=== PATIENT | female | born 1960 | race Caucasian/White ===

== ENCOUNTER 2024-06-26 21:36 | Inpatient (IN) | payer MEDICAID ==
[~2024-06-26] VITALS: Ht 157.5 cm; Wt 54.0 kg
[2024-06-26 21:42] VITALS: O2SAT 99
[2024-06-26] MEDS: SODIUM CHLORIDE 0.9% (SEPSIS BOLUS) IV ONE (23:06)
[2024-06-26] MEDS: PIPERACILLIN/TAZO 3.375G/50ML 50 ML IV ONE (23:19)
[2024-06-26 23:23] LABS: BG CARBOXYHEMOGLOBIN 2.2 % (0.5-1.5); BG DEOXYHEMOGLOBIN 10.1 % (0.0-5.0); BG HCO3 ACT 28.2 mmol/L (21.0-28.0); BG METHEMOGLOBIN 0.3 % (0.5-1.5); BG OXYGEN SATURATION 89.6 % (94.0-98.0); BG OXYHEMOGLOBIN 87.4 % (94.0-98.0); BG PCO2 45.9 mmHg (32.0-45.0); BG PH 7.406 (7.350-7.450); BG PO2 58.9 mmHg (83.0-108.0); BG SAMPLE SITE RIGHT RADIAL; BG TOTAL HEMOGLOBIN 10.7 g/dL (12.0-16.0); BG VENT MODE ROOM AIR
[2024-06-26 23:25] LABS: HEMATOCRIT. 35.3 % (36.0-48.0); MEAN CORPUSCULAR HEMOGLOBIN 26.1 pg (28.0-32.0); MEAN CORPUSCULAR HGB CONC 31.2 g/dL (31.0-37.0); MEAN CORPUSCULAR VOLUME 83.7 fL (81.0-99.0); MEAN PLATELET VOLUME 11.3 fl (7.4-10.4); RED BLOOD CELL COUNT 4.22 mill/uL (4.2-5.4); WHITE BLOOD COUNT 12.4 x1000/uL (4.5-11.0)
[2024-06-26 23:30] LABS: CARBON DIOXIDE 31 mEq/L (21-32); CHLORIDE 105 mEq/L (98-107); POTASSIUM 3.8 mEq/L (3.5-5.1); SODIUM 150 mEq/L (136-145)
[2024-06-26 23:31] LABS: CALCIUM 9.7 mg/dL (8.7-10.4)
[2024-06-26 23:33] LABS: INR 1.2; PROTHROMBIN TIME 12.7 sec (9.6-11.0)
[2024-06-26 23:35] LABS: CREATININE 1.3 mg/dL (0.6-1.0)
[2024-06-26 23:36] LABS: TROPONIN I HIGH SENSITIVITY 9 ng/L (3.0-34); UREA NITROGEN BLOOD 66 mg/dL (9-23)
[2024-06-26 23:37] LABS: ALANINE AMINOTRANSFERASE 21 IU/L (10-49); ALBUMIN 2.7 g/dL (3.2-4.8); ASPARTATE AMINOTRANSFERASE 19 IU/L (<34)
[2024-06-26 23:38] LABS: BILIRUBIN DIRECT 0.4 mg/dL (<=3.0); BILIRUBIN TOTAL 0.7 mg/dL (0.1-1.0); CREATINE KINASE 82 IU/L (34-145); PROTEIN TOTAL 6.2 g/dL (6.0-8.3)
[2024-06-26 23:46] LABS: ETHANOL BLOOD < 10 mg/dL (<10); LACTIC ACID 4.8 mmol/L (0.4-2.0)
[2024-06-26 23:47] LABS: GLUCOSE 587 mg/dL (70-105)
[2024-06-26] MEDS: VANCOMYCIN 1G PREMIX 200 ML IV ONE (23:55)
[2024-06-27 00:04] LABS: DIFFERENTIAL COMMENT 1; PLATELET 34 x1000/uL (130-400)
[2024-06-27 01:17] VITALS: TEMP 36.78072
[2024-06-27] MEDS ORDERED: DEXT 5%/0.9% NACL 1,000 ML IV SCH (01:30)
[2024-06-27] MEDS ORDERED: MAGNESIUM 2 G PREMIX 50 ML IV PRN (01:30)
[2024-06-27] MEDS ORDERED: DEXTROSE 50% WATER 50ML SYRINGE IV PRN (01:30)
[2024-06-27] MEDS ORDERED: BLOOD SUGAR DIAGNOSTIC STRIP TEST PRN (01:30)
[2024-06-27] MEDS ORDERED: POTASSIUM CHLORIDE 40 MEQ in SODIUM CHLORIDE 0.9% 230 ML IV PRN (01:30)
[2024-06-27] MEDS ORDERED: INSULIN REGULAR (DRIP) 100 UNITS in SODIUM CHLORIDE 0.9% 99 ML IV SCH (01:30)
[2024-06-27] MEDS ORDERED: SODIUM PHOSPHATE 15 MMOL in SODIUM CHLORIDE 0.9% 245 ML IV PRN (01:30)
[2024-06-27 01:36] LABS: TROPONIN I HIGH SENSITIVITY 9 ng/L (3.0-34)
[2024-06-27 01:49] LABS: CHLORIDE 105 mEq/L (98-107); POTASSIUM 3.4 mEq/L (3.5-5.1); SODIUM 147 mEq/L (136-145)
[2024-06-27 01:50] LABS: CALCIUM 8.9 mg/dL (8.7-10.4); CARBON DIOXIDE 31 mEq/L (21-32)
[2024-06-27] MEDS: INSULIN REGULAR 100U/100ML PMX 100 ML IV SCH (02:35)
[2024-06-27] MEDS: INSULIN REGULAR (HUMULIN R) 1000UNITS/10ML VIAL IV ONE (02:49)
[2024-06-27] MEDS: HYDROMORPHONE HCL/PF 2MG/ML INJ IV ONE (02:50)
[2024-06-27 02:53] LABS: TROPONIN I HIGH SENSITIVITY 10 ng/L (3.0-34)
[2024-06-27] MEDS: BLOOD SUGAR DIAGNOSTIC STRIP TEST SCH (03:03)
[2024-06-27] MEDS: KCL 20MEQ/100ML PREMIX 100 ML IV PRN (03:28)
[2024-06-27] MEDS: SODIUM CHLORIDE 0.9% 1,000 ML IV SCH (03:28)
[2024-06-27 04:26] LABS: CREATININE 1.2 mg/dL (0.6-1.0)
[2024-06-27 04:27] LABS: UREA NITROGEN BLOOD 66 mg/dL (9-23)
[2024-06-27 04:29] LABS: PHOSPHORUS 3.4 mg/dL (2.5-4.9)
[2024-06-27 04:39] LABS: GLUCOSE 582 mg/dL (70-105)
[2024-06-27 06:25] VITALS: PULSE 75; RESP 20; O2SAT 94
[2024-06-27] MEDS ORDERED: EPINEPHRINE 10 MG in SODIUM CHLORIDE 0.9% 240 ML IV PRN ×2 (06:45→07:00)
[2024-06-27] MEDS ORDERED: NOREPINEPHRINE 8MG/250ML PMX 250 ML IV PRN ×2 (06:45→09:00)
[2024-06-27 07:07] LABS: CARBON DIOXIDE 18 mEq/L (21-32); CHLORIDE 114 mEq/L (98-107); SODIUM 152 mEq/L (136-145)
[2024-06-27 07:08] LABS: CALCIUM 10.5 mg/dL (8.7-10.4)
[2024-06-27 07:13] LABS: CREATININE 1.4 mg/dL (0.6-1.0); GLUCOSE 324 mg/dL (70-105); UREA NITROGEN BLOOD 60 mg/dL (9-23)
[2024-06-27 07:15] LABS: ALANINE AMINOTRANSFERASE 53 IU/L (10-49); ASPARTATE AMINOTRANSFERASE 160 IU/L (<34); BILIRUBIN TOTAL 0.5 mg/dL (0.1-1.0); PROTEIN TOTAL 4.5 g/dL (6.0-8.3)
[2024-06-27] MEDS: EPINEPHRINE 10 MG in SODIUM CHLORIDE 0.9% 240 ML IV PRN (07:18)
[2024-06-27 08:06] VITALS: PULSE 88; RESP 20; O2SAT 95
[2024-06-27] MEDS ORDERED: ACETAMINOPHEN 650MG/20.3ML UDC NG PRN (08:15)
[2024-06-27] MEDS ORDERED: ACETAMINOPHEN 650MG SUPP PR PRN (08:15)
[2024-06-27] MEDS: ACETAMINOPHEN 1000MG/100ML 100 ML IV NR (08:23)
[2024-06-27 08:26] VITALS: TEMP 101.7
[2024-06-27] MEDS ORDERED: PANTOPRAZOLE SODIUM 40 MG/VIAL IV SCH (09:00)
[2024-06-27] MEDS ORDERED: PHENYLEPHRINE 50MG/250ML PMX 250 ML IV PRN (09:00)
[2024-06-27] MEDS ORDERED: VASOPRESSIN 20 UNIT in SODIUM CHLORIDE 0.9% 99 ML IV PRN (09:00)
[2024-06-27 09:11] VITALS: PULSE 109; RESP 20
[2024-06-27 09:30] LABS: BG BASE EXCESS -24.6 mmol/L (-2.0-3.0); BG DEOXYHEMOGLOBIN 0.5 % (0.0-5.0); BG FRACTION INSPIRED OXYGEN 100; BG HCO3 ACT 8.3 mmol/L (21.0-28.0); BG METHEMOGLOBIN 0.3 % (0.5-1.5); BG OXYGEN SATURATION 99.5 % (94.0-98.0); BG OXYHEMOGLOBIN 98.2 % (94.0-98.0); BG PCO2 45.9 mmHg (32.0-45.0); BG PH 6.874 (7.350-7.450); BG PO2 328.7 mmHg (83.0-108.0); BG SAMPLE SITE RIGHT BRACHIAL; BG TOTAL HEMOGLOBIN 11.8 g/dL (12.0-16.0); BG VENT MODE VENT - AC
[2024-06-27 09:43] VITALS: BP 80/57
[2024-06-27 10:36] LABS: PLATELET ESTIMATE MARKEDLY DECREASED
[2024-06-27 10:37] LABS: ANISOCYTOSIS 1+
== END 2024-06-27 14:20 | DRG 720 ==
LOC: ER 21:36 → MICUSO 06-27 01:32
PROVIDERS: ADMIT Internal Medicine; ATTEND Internal Medicine
PROC: 5A12012 Performance of Cardiac Output, Single, Manual (ICD-10-PCS; principal; 2024-06-27)
PROC: 0BH17EZ Insertion of Endotracheal Airway into Trachea, Via Natural or Artificial Opening (ICD-10-PCS; 2024-06-27)
DX: A41.9 Sepsis, unspecified organism (principal); J96.01 Acute respiratory failure with hypoxia; I46.9 Cardiac arrest, cause unspecified; N17.0 Acute kidney failure with tubular necrosis; G06.1 Intraspinal abscess and granuloma; J94.8 Other specified pleural conditions; G93.41 Metabolic encephalopathy; J18.9 Pneumonia, unspecified organism; Z66 Do not resuscitate; R65.21 Severe sepsis with septic shock; D69.6 Thrombocytopenia, unspecified; E87.20 Acidosis, unspecified; E87.0 Hyperosmolality and hypernatremia; E11.65 Type 2 diabetes mellitus with hyperglycemia; I10 Essential (primary) hypertension; I49.01 Ventricular fibrillation; N30.80 Other cystitis without hematuria; R00.0 Tachycardia, unspecified; I45.10 Unspecified right bundle-branch block; E87.6 Hypokalemia; D64.9 Anemia, unspecified; E88.09 Other disorders of plasma-protein metabolism, not elsewhere classified
CPT/HCPCS: 31500; 36415; 36600; 71045; 74176; 80048; 80051; 80053; 80076; 80320; 82010; 82375; 82550; 82805; 82962; 83605; 83735; 83930; 84100; 84132; 84145; 84484; 85025; 86850; 86900; 87186; 93005; 94002; 94070; 99291; J1171; J1815; J2543; J3370; J3480; J3490; J7030; J7042; J7050; G0480; J0131